=== PATIENT | female | born 1975 | race Caucasian/White ===

== ENCOUNTER → 2018-01-17 10:28 | Outpatient (CLI) | payer OTHER, SELFPAY ==
[2018-01-17 12:43] LABS: Ferritin 6 ng/mL (8-252); Iron 113 ug/dL (50-170); Magnesium 2.2 mg/dL (1.6-2.6); T4 Free Direct 0.89 ng/dL (0.76-1.46); Thyroid Stim Hormone (TSH) 1.94 uIU/mL (0.358-3.74)
[2018-01-18 10:03] LABS: Vitamin B12 691 pg/mL (211-911)
== END ==
PROVIDERS: Family Provider Family Medicine; PCP Family Medicine; Visit Provider Family Medicine
DX: D64.9 Anemia, unspecified (principal); R00.2 Palpitations; R53.83 Other fatigue
CPT/HCPCS: 36415; 82607; 82728; 83540; 83735; 84439; 84443

== ENCOUNTER → 2018-03-24 12:55 | Outpatient (CLI) | payer OTHER, SELFPAY ==
--- NOTE | 2018-03-24 12:59 | BI_ITS ---
MAMMOGRAPHY - BILATERAL SCREENING REASON FOR EXAM: Female, 42 years old. Routine annual screening examination. PERTINENT HISTORY: Non-contributory. TECHNIQUE: Digital bilateral breast magalis (3D mammographic acquisition) in the CC and MLO projections. 2-D mediolateral oblique (MLO) and craniocaudad (CC) views of both breasts were obtained. CAD: Full Field Digital Mammography with Computer Added Detection was performed. COMPARISON: None. Baseline examination. FINDINGS: Breast Composition: The breasts are heterogeneously dense, which may obscure small masses. There are no dominant masses or suspicious calcifications. Small bilateral axillary lymph nodes. No other significant abnormalities are identified. BI/SCREENING MAMM (CAD), BILAT IMPRESSION: Negative screening mammogram. Yearly followup mammogram recommended. (A) ASSESSMENT CATEGORY: BIRADS Category 2: Benign. A letter regarding these results will be sent to the patient by the facility within 30 days. Approximately 10% of breast cancers are not detected by mammography. A normal mammogram should not delay biopsy of a clinically suspicious abnormality. [id number] Electronically Signed: Karlos Jama MD at 14:57 EDT Tel [phone], Service support ,
== END ==
PROVIDERS: Family Provider Family Medicine; PCP Family Medicine; Referring Provider Obstetrics & Gynecology; Visit Provider Obstetrics & Gynecology
DX: Z12.31 Encounter for screening mammogram for malignant neoplasm of breast (principal)
CPT/HCPCS: 77063; 77067

== ENCOUNTER → 2018-12-12 15:23 | Outpatient (CLI) | payer OTHER, SELFPAY | PROVIDERS: Family Provider Family Medicine; PCP Family Medicine; Visit Provider Family Medicine | DX: J34.0 Abscess, furuncle and carbuncle of nose (principal) | CPT/HCPCS: 87077; 87081 ==

== ENCOUNTER 2019-02-12 17:29 | Emergency (ER) | payer OTHER, SELFPAY ==
[2019-02-12 17:29] VITALS: BP 99/55; PULSE 94; RESP 18; TEMP 36.9; O2SAT 99; BMI 25.7
== END 2019-02-12 20:11 | disposition left against medical advice (07) ==
LOC: ED 18:56
PROVIDERS: Emergency Provider Emergency Medicine; Family Provider Family Medicine; PCP Family Medicine
DX: R69 Illness, unspecified (principal); Z53.21 Procedure and treatment not carried out due to patient leaving prior to being seen by health care provider

== ENCOUNTER 2020-02-06 12:51 | Outpatient (RCR) | payer OTHER, SELFPAY | END 2020-02-20 23:59 | LOC: EMPH 12:51 | PROVIDERS: PCP Family Medicine; Visit Provider Family Medicine Geriatric Medicine | DX: Z11.59 Encounter for screening for other viral diseases (principal) | CPT/HCPCS: 87635; U0003 ==

== ENCOUNTER 2020-03-20 16:34 | Outpatient (RCR) | payer OTHER, SELFPAY | END 2020-03-22 23:59 | LOC: EMPH 16:34 | PROVIDERS: PCP Family Medicine; Referring Provider Family Medicine Geriatric Medicine; Visit Provider Family Medicine Geriatric Medicine | DX: Z03.818 Encounter for observation for suspected exposure to other biological agents ruled out (principal) | CPT/HCPCS: 87426 ==

== ENCOUNTER 2020-04-16 10:56 | Outpatient (RCR) | payer OTHER, SELFPAY | END 2020-04-21 23:59 | LOC: EMPH 10:56 | PROVIDERS: PCP Family Medicine; Referring Provider Family Medicine Geriatric Medicine; Visit Provider Family Medicine Geriatric Medicine | DX: Z03.818 Encounter for observation for suspected exposure to other biological agents ruled out (principal) | CPT/HCPCS: 87426 ==

== ENCOUNTER 2020-05-22 07:24 | Outpatient (RCR) | payer OTHER, SELFPAY | END 2020-05-22 23:59 | LOC: EMPH 07:24 | PROVIDERS: PCP Family Medicine; Referring Provider Family Medicine Geriatric Medicine; Visit Provider Family Medicine Geriatric Medicine | DX: Z03.818 Encounter for observation for suspected exposure to other biological agents ruled out (principal) | CPT/HCPCS: 87426 ==

== ENCOUNTER 2020-06-19 10:42 | Outpatient (RCR) | payer OTHER, SELFPAY | END 2020-06-22 23:59 | LOC: EMPH 10:42 | PROVIDERS: PCP Family Medicine; Referring Provider Family Medicine Geriatric Medicine; Visit Provider Family Medicine Geriatric Medicine | DX: Z03.818 Encounter for observation for suspected exposure to other biological agents ruled out (principal) | CPT/HCPCS: 87426 ==

== ENCOUNTER 2020-07-15 12:38 | Outpatient (RCR) | payer OTHER, SELFPAY | END 2020-07-20 23:59 | LOC: EMPH 12:38 | PROVIDERS: PCP Family Medicine; Referring Provider Family Medicine Geriatric Medicine; Visit Provider Family Medicine Geriatric Medicine | DX: Z03.818 Encounter for observation for suspected exposure to other biological agents ruled out (principal) | CPT/HCPCS: 87426 ==

== ENCOUNTER 2020-08-11 08:37 | Outpatient (RCR) | payer OTHER, SELFPAY | END 2020-08-20 23:59 | LOC: EMPH 08:37 | PROVIDERS: PCP Family Medicine; Referring Provider Family Medicine Geriatric Medicine; Visit Provider Family Medicine Geriatric Medicine | DX: Z03.818 Encounter for observation for suspected exposure to other biological agents ruled out (principal) | CPT/HCPCS: 87426 ==

== ENCOUNTER 2020-09-19 10:01 | Outpatient (RCR) | payer OTHER, SELFPAY | END 2020-09-19 23:59 | LOC: EMPH 10:01 | PROVIDERS: PCP Family Medicine; Referring Provider Family Medicine Geriatric Medicine; Visit Provider Family Medicine Geriatric Medicine | DX: Z03.818 Encounter for observation for suspected exposure to other biological agents ruled out (principal) | CPT/HCPCS: 87426 ==

== ENCOUNTER 2020-10-17 08:59 | Outpatient (RCR) | payer OTHER, SELFPAY | END 2020-10-20 23:59 | LOC: EMPH 08:59 | PROVIDERS: PCP Family Medicine; Referring Provider Family Medicine Geriatric Medicine; Visit Provider Family Medicine Geriatric Medicine | DX: Z03.818 Encounter for observation for suspected exposure to other biological agents ruled out (principal) | CPT/HCPCS: 87426 ==

== ENCOUNTER 2020-11-18 11:07 | Outpatient (RCR) | payer OTHER, SELFPAY | END 2020-11-19 23:59 | LOC: EMPH 11:07 | PROVIDERS: PCP Family Medicine; Referring Provider Family Medicine Geriatric Medicine; Visit Provider Family Medicine Geriatric Medicine | DX: Z03.818 Encounter for observation for suspected exposure to other biological agents ruled out (principal) | CPT/HCPCS: 87426 ==

== ENCOUNTER 2020-12-19 13:00 | Outpatient (RCR) | payer OTHER, SELFPAY | END 2020-12-19 16:00 | disposition home or self-care (01) | LOC: EMPH 13:00 | PROVIDERS: PCP Family Medicine; Referring Provider Family Medicine Geriatric Medicine; Visit Provider Family Medicine Geriatric Medicine | DX: Z03.818 Encounter for observation for suspected exposure to other biological agents ruled out (principal) | CPT/HCPCS: 87426 ==

== ENCOUNTER → 2020-12-19 14:23 | Outpatient (CLI) | payer OTHER, SELFPAY ==
--- NOTE | 2020-12-19 14:30 | RAD_ITS ---
STUDY: X-RAY - LUMBAR SPINE REASON FOR EXAM: Female, 45 years old. LOW BACK PAIN TECHNIQUE: 4 view(s) of the lumbar spine were obtained. COMPARISON: None FINDINGS: Normal lumbar lordosis. There is no substantial scoliosis. There is a normal alignment of the vertebrae. Normal vertebral bodies and endplates. Normal disc space heights. The soft tissue structures are unremarkable. RAD/L/S Spine Min 4 Views IMPRESSION: Normal x-ray examination of the lumbar spine. Electronically Signed: Rudi Delgadillo MD at 14:57 EDT , Service support ,
== END ==
PROVIDERS: PCP Family Medicine; Referring Provider Family Medicine; Visit Provider Family Medicine
DX: M54.5 Low back pain (principal)
CPT/HCPCS: 72110

== ENCOUNTER 2021-01-20 07:58 | Outpatient (RCR) | payer OTHER, SELFPAY | END 2021-01-20 23:59 | LOC: EMPH 07:58 | PROVIDERS: PCP Family Medicine; Referring Provider Family Medicine Geriatric Medicine; Visit Provider Family Medicine Geriatric Medicine | DX: Z03.818 Encounter for observation for suspected exposure to other biological agents ruled out (principal) | CPT/HCPCS: 87426 ==

== ENCOUNTER 2021-01-28 11:00 | Outpatient (RCR) | payer OTHER, SELFPAY ==
--- NOTE | 2020-12-29 10:05 | HP.PTEVAL ---
Patient's Visit Information DENITA MUÑOZ is a 45 year old F referred to Physical Therapy by Dr. Isauro Henry DO with a diagnosis of Back pain. Date of Evaluation: 12/29/20 Physical Therapist: Ankit Moreno DPT - Visit Plan Frequency: 2x /Week Duration: 4 Weeks Plan: start with extension progression including REIL and RACHEL for HEP. Pt. to complete x6 times daily. 2) add in neutral spine core stability to reduce risk of return. 3) maintain reduction of symptoms and progress to dynamic core stability. - Subjective Pt. is here today for her initial evaluation with diagnosis of back pain. Pt. reports having increased LBP on an off for a few years now. Initially starting ~15 years ago. Pt. is now having pain that is radiating down her L leg to her ankle. Pt. denies loss B/B and no saddle region. Pt. reports increased symptoms with: bending, lifting, sitting. Decreased symptoms: walking, standing, Tylenol. Pt. has had xrays: normal without acute injury. Pt. is having increased pain in AMs and at work. Pt. works as a nurse. She has started to increase her walking/running, and core strengthening. Pt. did have some increased pain with sit ups and with superman movements. Pt. has not tried PT recently for her symptoms. Pt. is hopeful to reduce symptoms in order to get back to all recreational and work activities without limitations. - Pain lumbar spine Pain Intensity (Out of 10): 2 Pain Intensity Range: 0, 6 - Objective POSTURE: Pt. has decent posture in stance. Pt. has slight flexed posture with slight anterior pelvic tilt. PALPATION: Pt. has increased tenderness at L2/L3 and less but still present of her lower lumbar segments. Pt. has hypomobility at L2/L3 as well. Pt. has no erector spinae pain with palpation. NEURO: Pt. has normal sensation to light and sharp touch of BLEs and normal DTR of BLEs. Pt. is able to rise on heels and toes without issues. ROM: Pt. has normal B hip ROM without increase in symptoms. LUMBAR SPINE: flexion min loss increase NW, Ext min loss decrease NB, SB nil loss NE, rotation nil loss NE. MMT: Pt. has full strength throughout BLEs. Pt. has no pain with testing. GAIT: Pt. has normal gait pattern without issues. No postural sway, no later shift noted. Normal arm swing and step length - Special Tests L/S Slump test left side: Positive L/S Slump test right side: Negative L/S Left Straight Leg Raise: Positive L/S Right Straight Leg Raise: Negative Lumbar Standing: Flexion - Mechanical Response: No effect Lumbar Standing: Flexion - Symptoms During Testing: Increases Lumbar Standing: Flexion - Symptoms After Testing: Peripheralized Lumbar Standing: Extension - Mechanical Response: No effect Lumbar Standing: Extension - Symptoms During Testing: Decreases Lumbar Standing: Extension - Symptoms After Testing: Centralized Lumbar Standing: Right Side Glides - Mechanical Response: No effect Lumbar Standing: Right Side Eldridge - Symptoms During Testing: No effect Lumbar Standing: Right Side Eldridge - Symptoms After Testing: No effect Lumbar Standing: Left Side Eldridge - Mechanical Response: No effect Lumbar Standing: Left Side Eldridge - Symptoms During Testing: No effect Lumbar Standing: Left Side Eldridge - Symptoms After Testing: No effect Lumbar Lying: Extension - Mechanical Response: No effect Lumbar Lying: Extension - Symptoms During Testing: Decreases Lumbar Lying: Extension - Symptoms After Testing: Better Lumbar Static: Slouched Sit - Mechanical Response: No effect Lumbar Static: Slouched Sit - Symptoms During Testing: Increases Lumbar Static: Slouched Sit - Symptoms After Testing: Worse Lumbar Static: Sitting Erect - Mechanical Response: No effect Lumbar Static: Sitting Erect - Symptoms During Testing: Decreases Lumbar Static: Sitting Erect - Symptoms After Testing: No better Lumbar Static:Lying Prone in Extension - Mechanical Response: No effect Lumbar Static: Lying Prone in Extension - Sx During Testing: Decreases Lumbar Static: Lying Prone in Extension - Sx After Testing: Better - Balance/Special Test Scores Oswestry Low Back Score: 14 - Goals Goal 1:: LTG: Pt. to be I with HEP. Goal Time Frame: 4-6 Weeks Goal 2:: STG: Pt. to be able to sit for 30 min without increase in symptoms. Goal Time Frame: 2 Weeks Goal 3:: STG: pt. to have decreased AM pain to 0-1/10 pain in lumbar spine and LLE. Goal Time Frame: 2 Weeks Goal 4:: LTG: Pt. to have full lumbar ROM including flexion and extension with 0/10 pain. Goal Time Frame: 4-6 Weeks Goal 5:: LTG: pt. to have increased core strength including flexion, extension and B hip to 5/5 throughout. Goal Time Frame: 4-6 Weeks Goal 6:: LTG: Pt. to complete all work and recreational activities without increase in symptoms of lumbar spine. Goal Time Frame: 4-6 Weeks - Rehabilitation Potential Physical Therapy Diagnosis: Pt. has signs and symptoms of low back pain with radicular symptoms down L side. Pt. has signs of discogenic involvement which reduced with extension progression. She has marked pain and hypomobility and L2/L3 region. Pt. would benefit from PT for extension progression, progressing to core stability to reduce risk of symptoms returning. Rehabilitation Potential: Excellent - Anticipated Interventions Patient/Client Instruction: Educate patient on: Condition, Plan of Care, Risk Factors, Benefits of Fitness Program For the Purpose of:: To improve self management, To prevent re-injury, To improve ability to perform tasks related to life management, To improve tolerance to ADL's Therapeutic Exercise to Include: Strength training, Power training, Endurance training, Postural training, Flexibilty training, via Neurocom Balance Mas, Active ROM, Dynamic Lumbar Stabilization, Nevaeh Exercises For the Purpose of:: To decrease pain, To decrease swelling/inflammation, To increase ROM, To improve nutrient delivery to tissue, To increase oxygenation perfusion, To improve muscle performance and motor function, To improve ability to perform ADL's, To increase tolerance to activity/condition/position, To improve gait and locomotor functions, To improve health of tissue, To decrease soft tissue restriction, To increase flexibility/ROM, To improve endurance Manual Therapy Techniques to Include: Mobilization, Passive ROM, Functional dry needling For the Purpose of:: To decrease pain, To decrease swelling/inflammation, To increase ROM Thank you for the opportunity to evaluate your patient. For Medicare and Medicare HMO plans, please review the plan of care and approve it. It will need to be FAXED BACK to us at [phone] for Medicare purposes. For Medicare only, by signing this I certify the plan of care. Please let me know if there are questions or concerns regarding this plan of care. Physician Signature: Date:
--- NOTE | 2021-05-05 14:30 | HP.PT.NRP ---
DENITA MUÑOZ was seen in my office for initial evaluation on 12/29/20. The following Plan of Care was established for this patient: Initial Frequency: 2x /Week Initial Duration: 4 Weeks Patient/Client Instruction: Educate patient on: Condition, Plan of Care, Risk Factors, Benefits of Fitness Program For the Purpose of:: To improve self management, To prevent re-injury, To improve ability to perform tasks related to life management, To improve tolerance to ADL's Therapeutic Exercise to Include: Strength training, Power training, Endurance training, Postural training, Flexibilty training, via Neurocom Balance Mas, Active ROM, Dynamic Lumbar Stabilization, Nevaeh Exercises For the Purpose of:: To decrease pain, To decrease swelling/inflammation, To increase ROM, To improve nutrient delivery to tissue, To increase oxygenation perfusion, To improve muscle performance and motor function, To improve ability to perform ADL's, To increase tolerance to activity/condition/position, To improve gait and locomotor functions, To improve health of tissue, To decrease soft tissue restriction, To increase flexibility/ROM, To improve endurance Manual Therapy Techniques to Include: Mobilization, Passive ROM, Functional dry needling For the Purpose of:: To decrease pain, To decrease swelling/inflammation, To increase ROM This patient was last seen in our office 01/28/21. Pertinent comments regarding their Physical therapy will appear below: Pt. was seen in PT for her LBP. Pt. was progressing well with core stability and extension progression. Pt. has not been seen in ~3 months and will be DC from PT at this point in time. At this point I will be discontinuing this patient from physical therapy. I would be happy to see this patient again in the future if found appropriate by the physician. Thank you! Ankit Moreno, DPT Balance/Gait/Functional tests - Balance/Special Test Scores Oswestry Low Back Score: 11
== END 2021-01-28 19:00 | disposition home or self-care (01) ==
LOC: PT 11:00
PROVIDERS: PCP Family Medicine; Referring Provider Family Medicine; Visit Provider Family Medicine
DX: M54.5 Low back pain (principal)
CPT/HCPCS: 97110; 97161

== ENCOUNTER → 2021-02-03 | Outpatient (CLI) | payer OTHER, SELFPAY ==
[2021-02-06 13:42] LABS: HPV APTIMA, High Risk Negative (Negative)
== END | disposition home or self-care (01) ==
LOC: LABSPEC 11:44
PROVIDERS: PCP Family Medicine; Visit Provider Obstetrics & Gynecology
DX: Z12.4 Encounter for screening for malignant neoplasm of cervix (principal)
CPT/HCPCS: 87624; 88175; G0145

== ENCOUNTER → 2021-02-11 11:23 | Outpatient (CLI) | payer OTHER, SELFPAY ==
--- NOTE | 2021-02-11 11:26 | US_ITS ---
STUDY: ULTRASOUND OF THE FEMALE PELVIS - COMPLETE REASON FOR EXAM: Female, 45 years old. ABN BLEEDING LMP: 02/04/2021. TECHNIQUE: Transabdominal and Transvaginal TECHNICAL QUALITY: Adequate. COMPARISON: None. FINDINGS: The uterus is anteverted and is in a midline position. The uterus measures 9.4 cm x 6.4 cm x 4.5 cm. There is a Nabothian cyst of the cervix. The endometrium measures 10 mm in thickness, and is hyperechoic. There is no demonstrated endometrial mass. In the lower uterine segment, there is a 7 mm x 4 mm polyp. There is heterogeneous echotexture of the myometrium although no focal fibroid is seen. I.U.D. - The patient does not have an I.U.D. The right ovary is visualized. The right ovary measures 2.5 cm x 1.9 cm x 1.6 cm. There is a 1.2 cm x 1.4 cm x 1.1 cm follicle. There is no visualized right adnexal mass or complex lesion. There is normal arterial and normal venous vascularity. The left ovary is visualized. The left ovary measures 1.9 cm x 2.6 cm x 1.3 cm. There is no left ovarian cyst or ovarian mass. There is no visualized left adnexal mass or complex lesion. There is normal arterial and normal venous vascularity. There is no fluid in the cul-de-sac. US/Transvaginal Non- IMPRESSION: Heterogeneous appearance of the myometrium although no focal fibroid is seen. Small amount of fluid and possible 7 mm x 4 mm polyp is seen in the lower uterine segment. Small follicle in the right ovary. Electronically Signed: Karlos Jama MD at 15:25 EDT , Service support ,
--- NOTE | 2021-02-11 11:26 | US_ITS ---
STUDY: ULTRASOUND OF THE FEMALE PELVIS - COMPLETE REASON FOR EXAM: Female, 45 years old. ABN BLEEDING LMP: 02/04/2021. TECHNIQUE: Transabdominal and Transvaginal TECHNICAL QUALITY: Adequate. COMPARISON: None. FINDINGS: The uterus is anteverted and is in a midline position. The uterus measures 9.4 cm x 6.4 cm x 4.5 cm. There is a Nabothian cyst of the cervix. The endometrium measures 10 mm in thickness, and is hyperechoic. There is no demonstrated endometrial mass. In the lower uterine segment, there is a 7 mm x 4 mm polyp. There is heterogeneous echotexture of the myometrium although no focal fibroid is seen. I.U.D. - The patient does not have an I.U.D. The right ovary is visualized. The right ovary measures 2.5 cm x 1.9 cm x 1.6 cm. There is a 1.2 cm x 1.4 cm x 1.1 cm follicle. There is no visualized right adnexal mass or complex lesion. There is normal arterial and normal venous vascularity. The left ovary is visualized. The left ovary measures 1.9 cm x 2.6 cm x 1.3 cm. There is no left ovarian cyst or ovarian mass. There is no visualized left adnexal mass or complex lesion. There is normal arterial and normal venous vascularity. There is no fluid in the cul-de-sac. US/Pelvic (Non ) IMPRESSION: Heterogeneous appearance of the myometrium although no focal fibroid is seen. Small amount of fluid and possible 7 mm x 4 mm polyp is seen in the lower uterine segment. Small follicle in the right ovary. Electronically Signed: Karlos Jama MD at 15:25 EDT , Service support ,
== END ==
PROVIDERS: PCP Family Medicine; Referring Provider Obstetrics & Gynecology; Visit Provider Obstetrics & Gynecology
DX: N93.9 Abnormal uterine and vaginal bleeding, unspecified (principal); N83.01 Follicular cyst of right ovary
CPT/HCPCS: 76830; 76856

== ENCOUNTER → 2021-02-17 15:32 | Outpatient (CLI) | payer OTHER, SELFPAY ==
--- NOTE | 2021-02-17 | EMB_PTH ---
PATIENT: DENITA MUÑOZ LOC: [facility] U#:[id number] AGE/SX: 49/F ROOM: RE02/17/[address]: Dr. Marko Garner MD : 1975 BED: DIS: SPEC #: [id number] RECD: 02/17/21 16:15 STATUS: FREIDA OROURKE #: [id number] YAMILEX: 02/17/21 00:[address]: Marko Garner DEPT: SURGICAL PATHOLOGY RECD BY: Myrtle Shaffer ENTERED: 02/18/21 12:12 SP TYPE: ENDOM BX/C CYRUS DR: Dr. Joe Powers MD Tissues: Endometrium, NOS Procedures: Surgery Specimen Level IV HEADER OPERATION: Endometrial biopsy PRE-OP DIAGNOSIS: N93.9 TISSUE SUBMITTED: Endometrial biopsy MICROSCOPIC DIAGNOSIS Endometrial biopsy: Proliferative endometrium. Fragments of benign endocervical mucosa, blood and mucous. See comment. KRISTIN:kathya 02/19/2021 COMMENT The specimen predominantly consists of endocervical mucosa. MICROSCOPIC DESCRIPTION Slides are reviewed. GROSS DESCRIPTION Received in fixative is one container labeled with the patient's name and designated endometrial biopsy. The specimen consists of multiple irregular fragments of dark guillen soft tissue that in aggregate measure 2 x 1.5 x <0.1 cm. The specimen is totally submitted in one cassette. / AM:kathya 02/18/21 TC:4 CPT: 12348
[2021-02-17 16:22] LABS: Hematocrit 34.6 % (37-47); Hemoglobin 11.2 g/dL (12.0-15.0); Mean Corp Hgb Conc 32.4 g/dL (32-36); Mean Corpuscular Hgb 30.9 pg (27.0-32.0); Mean Corpuscular Volume 95.6 fL (81-99); Mean Platelet Vol. 11.1 fl (6.2-12.0); Platelet Count 202 K/mm3 (150-450); RBC Distribution Width CV 12.5 % (11.6-14.6); RBC Distribution Width SD 43.7 fl (35.1-43.9); Red Blood Count 3.62 M/mm3 (4.2-5.4); White Blood Count 6.3 K/mm3 (4.4-11.0)
[2021-02-17 18:19] LABS: Estradiol 46.6 pg/mL; Follicle Stimulating Hormone 16.4 mIU/mL; Luteinizing Hormone 10.9 mIU/mL; T4 Free Direct 0.82 ng/dL (0.76-1.46); Thyroid Stim Hormone (TSH) 1.25 uIU/mL (0.358-3.74)
== END ==
PROVIDERS: PCP Family Medicine; Visit Provider Obstetrics & Gynecology
DX: N93.9 Abnormal uterine and vaginal bleeding, unspecified (principal)
CPT/HCPCS: 36415; 82670; 83001; 83002; 84439; 84443; 85027; 88305

== ENCOUNTER 2021-02-18 07:56 | Outpatient (RCR) | payer OTHER, SELFPAY ==
[2021-01-21 00:28] VITALS: BMI 25.7
== END 2021-02-19 23:59 ==
LOC: EMPH 07:56
PROVIDERS: PCP Family Medicine; Referring Provider Family Medicine Geriatric Medicine; Visit Provider Family Medicine Geriatric Medicine
DX: Z03.818 Encounter for observation for suspected exposure to other biological agents ruled out (principal)
CPT/HCPCS: 87426; 87635; U0005; U0003

== ENCOUNTER 2021-03-19 12:19 | Outpatient (RCR) | payer OTHER, SELFPAY ==
[2021-02-20 00:22] VITALS: BMI 25.7
== END 2021-03-22 23:59 ==
LOC: EMPH 12:19
PROVIDERS: PCP Family Medicine; Referring Provider Family Medicine Geriatric Medicine; Visit Provider Family Medicine Geriatric Medicine
DX: Z03.818 Encounter for observation for suspected exposure to other biological agents ruled out (principal)
CPT/HCPCS: 87426

== ENCOUNTER 2021-03-23 14:10 | Outpatient (RCR) | payer OTHER, SELFPAY ==
[2021-03-23 00:18] VITALS: BMI 25.7
[2021-03-23 12:42] LABS: Probe Check PASS
== END 2021-04-21 23:59 ==
LOC: EMPH 14:10
PROVIDERS: PCP Family Medicine; Referring Provider Family Medicine Geriatric Medicine; Visit Provider Family Medicine Geriatric Medicine
DX: U07.1 COVID-19 (principal)
CPT/HCPCS: 87635; U0005; U0003

== ENCOUNTER → 2021-04-01 10:07 | Outpatient (CLI) | payer OTHER, SELFPAY ==
--- NOTE | 2021-04-01 10:12 | RAD_ITS ---
STUDY: X-RAY CHEST REASON FOR EXAM: Female, 45 years old. COUGH,COVID TECHNIQUE: PA and lateral views of the chest. COMPARISON: None. FINDINGS: The lungs are clear and expanded. There is no demonstrated pleural abnormality. Normal size heart. Normal mediastinum and christina. Normal visualized pulmonary arteries. Normal visualized aortic arch and descending thoracic aorta. Normal visualized thoracic spine. Normal visualized ribs, clavicles, and shoulders. There is no demonstrated abnormality of the visualized soft tissue structures of the upper abdomen. RAD/Chest PA and Lateral IMPRESSION: Normal x-ray examination of the chest. Electronically Signed: Lucius Resendez MD at 16:53 EST Tel , Service support ,
== END ==
PROVIDERS: PCP Family Medicine; Referring Provider Family Medicine; Visit Provider Family Medicine
DX: U07.1 COVID-19 (principal)
CPT/HCPCS: 71046

== ENCOUNTER 2021-05-26 14:47 | Outpatient (CLI) | payer OTHER, SELFPAY | END 2021-05-26 23:59 | disposition short-term general hospital (02) | LOC: LABSPEC 14:48 | PROVIDERS: PCP Family Medicine; Visit Provider Obstetrics & Gynecology | DX: Z20.822 Contact with and (suspected) exposure to COVID-19 (principal) | CPT/HCPCS: 87635; U0003; U0005 ==

== ENCOUNTER 2021-05-28 05:59 | Day surgery (SDC) | payer OTHER, SELFPAY ==
[2021-05-28] VITALS (8 sets, daily range): BP systolic 98–114; BP diastolic 64–79; PULSE 55–72; RESP 16; TEMP 36.4–36.8; O2SAT 98–100; BMI 27.5
--- NOTE | 2021-05-28 06:27 | PCM.HP.BLA ---
History and Physical Date of Admission: 05/28/21 Surgical History and Physical Date: 05/28/2021 Name: DENITA MUÑOZ Age: 45 Date of : 1975 Denita Muñoz, a 45 year old female 2 0 1 0 3, presents for Hysteroscopy, D, endometrial ablation. Possible polypectomy on May 28, 2021 at . -- Denita is here for Hysteroscopy D&C Dulce possible symphion on 05/28/21. Consent were signed. COVID testing done. Medications and allergies up to date. States she is doing well. MEDICATIONS HISTORY: ALLERGIES: Ibuprofen, Hives, Amoxicillin, Angioedema of lips, Bactrim, Facial swelling, Bactrim and Hives and/or rash Infections - Chicken pox Illnesses - none Accidents - None Hospitalizations - Childbirth and see surgery Review of Systems: GENERAL - Denies fever, or chills SKIN - Denies skin changes EYES - Denies visual changes EARS - Denies difficulty hearing NOSE - Denies nasal congestion or bleeding MOUTH - Denies sore throat or difficulty swallowing NECK - Denies pain or swelling RESPIRATORY - Denies shortness of breath or wheezing CARDIOVASCULAR - Denies palpitations or chest pain GASTROINTESTINAL - Denies nausea, vomiting, diarrhea, constipation GENITOURINARY - Denies dysuria, frequency of urination, incontinence of urine MUSCULOSKELETAL - Denies joint or muscle pain NEUROLOGICAL - Denies localized numbness or weakness PSYCHIATRIC - Denies depression or anxiety ENDOCRINE - Denies heat or cold intolerance, weight loss or gain HEMATO-IMMUNOLOGIC - Denies excessive bleeding with cuts SOCIAL HISTORY: Alcohol Use - denies drinking Smoking - denies smoking Diet - no gluten Lifestyle - low stress lifestyle and Exercise - active Seat Belt Use - always Employer - [employer] Job Description - transitional care - RN Illicit Drug Use - None Sexual Activity - single sexual partner and single Residence - lives with Hours Worked - 36 Spouse-Sig Other Name - Maurice Marquez Spouse-Sig Other Occupation - [employer] Spouse-Sig Other Phone No - [phone] cell Children Name(s) - Reji Crooks, Roxy Blackmon Control - BTO FAMILY HISTORY: Mother: Celiac Disease. Father: Aneurysm, Pre-cancerous lesions in colon and Prostate cancer. Paternal Grandmother: Colon Cancer. MENSTRUAL HISTORY: LMP Known?- YesAmount/Duration - 5-6 DAYS, Regularity - Regular, Frequency - monthly days, LMP - 05/06/21, Age Onset Menarche - 14 PAST PREGNANCIES: Total Pregnancies - 4; Full Term Pregnancies - 2; Premature - 0; Abortions, Induced - 0; Abortions, Spontaneous - 1; Ectopics - 0; Multiple Births - 0; Living Children - 3 SURGICAL HISTORY: 1. 11/03/2006 ; Roxy Ferrara M.D. - 2. 05/23/1994 [place] Teeth Removal ; - 3. Appendectomy, 1993 ; - 4. , 1995 ; - 5. 07/09/2014 repeat /BTO ; Roxy Ferrara M.D. - PHYSICAL EXAM BP- 124/64 Sitting, Right arm, regular cuff Weight- 173.06568 lbs Height- 66 inch BMI:[id number] CONSTITUTIONAL - NAD, well nourished, and well developed SKIN - No rash, lesions, or ulcers HEENT - Normocephalic, PERRLA, EOMI NECK - No nodes, no nuchal rigidity and thyroid normal size and texture ABDOMEN - Without hepatosplenomegaly, distention, masses, rebound, or guarding; normal bowel sounds; no hernias EXTREMITIES - No edema or calf tenderness NEUROLOGICAL - Cranial nerves II-XII grossly intact PSYCHIATRIC - A and O to time, place, person, mood and affect External Genital Vagina - non-tender without lesions Urethra/Urethral Meatus - non-tender Bladder - non-tender Vagina - vaginal castano are pink and moist without loss of rugae and no evidence of atrophy Cervix - without cervical motion tenderness and has normal size and features without evident lesions Uterus - 5-6 cm in size, mobile and nontender Adnexa - clear without masses or tenderness ASSESSMENT/PLAN: 1. Encounter For Other Preprocedural Examination Patient for hysteroscopy, dilation curettage, endometrial ablation Dulce Educated patient on risk benefits alternatives all questions answered, consent signed Educated patient on postoperative recovery and pain 2. Abnormal Uterine And Vaginal Bleeding, Unspecified Patient recently with regular but heavy periods make her miss work EMB wnl. Educated pt on results. Discussed options, pt elects for ablation. Hysteroscopy, D&C, endometrial ablation. Possible polypectomy
[2021-05-28] MEDS: Lactated Ringers 1,000 ML 15 ML IV (06:31)
--- NOTE | 2021-05-28 07:30 | EMB_PTH ---
PATIENT: DENITA MUÑOZ LOC: [facility] [place] U#:[id number] AGE/SX: 45/F ROOM: RE05/28/[address]: Dr. Marko Garner MD : 1975 BED: DIS: 05/28/2021 SPEC #: [id number] RECD: 05/28/21 10:08 STATUS: FREIDA OROURKE #: [id number] YAMILEX: 05/28/21 07:[address]: Marko Garner DEPT: SURGICAL PATHOLOGY RECD BY: Nicole Segovia ENTERED: 05/28/21 13:29 SP TYPE: ENDOM BX/C CYRUS DR: Dr. Joe Powers MD Tissues: Endometrium, NOS Procedures: Surgery Specimen Level IV HEADER OPERATION: Hysteroscopy, D & C Dulce PRE-OP DIAGNOSIS: Abnormal uterine bleeding TISSUE SUBMITTED: Endometrial curettings MICROSCOPIC DIAGNOSIS Endometrium, curettings: Secretory endometrium. Rare fragments of benign endocervix. Fragment of benign myometrium. AM:kathya 05/29/2021 MICROSCOPIC DESCRIPTION Slides are reviewed. GROSS DESCRIPTION Received in fixative is one container labeled with the patient's name and designated endometrial curettings. The specimen consists of multiple irregular fragments of pink-guillen soft tissue that in aggregate measure 2.5 x 2 x 0.2 cm. The specimen is totally submitted in one cassette. / AM:kathya 05/28/21 TC:5 CPT: 64816
--- NOTE | 2021-05-28 09:13 | PCM.DC ---
Discharge Instructions Diet Discharge Diet: No restrictions Activity Discharge Activity: Return to Normal Activity, May Drive and May Shower May resume sexual activity in: 4-6 weeks Weight Bearing Status: Weight bearing as tolerated Dressing / Incision Call your doctor if your incision/area has: Continuous Slow Oozing and Foul Smelling Discharge Call your doctor if you observe: Fever of 101 or Higher, Shortness of breath and Chest pain Follow Up Care Please Follow Up With: Marko Garner MD When: 2 weeks postoperatively Test Results: Test results from this visit will be discussed in further detail at your follow-up appointment, if applicable. Discharge Plan Admission Attending Provider: Marko Garner Primary Care Provider: Joe Powers Discharge Orders/Prescriptions Prescriptions: No Action Multiple Vitamin, Womens 1 EACH tablet 1 ea PO DAILY RF: 0 Disposition Discharge Orders: Discharge Patient (Routine); Ordered 05/28/21 Ordered By: Dr. Marko Garner
--- NOTE | 2021-05-28 09:14 | PCM.OPRPT ---
Report of Operation Date of Procedure: 05/28/21 Pre-Operative Diagnosis: Abnormal uterine bleeding Post-Operative Diagnosis: Abnormal uterine bleeding Surgery/Procedure Performed:: Hysteroscopy, dilation and curettage, endometrial ablation Dulce Description of Surgical Findings:: Surgeon: Marko Garner MD Anesthesia: MAC EBL: 10 cc Urine output: 700 cc Complications: None Specimen: Endometrial curettings Findings: Hysteroscope with no pathology noted. Endometrial cavity found to be 6.5 cm in length. Post procedure hysteroscopy with no new pathology. Consent: Patient with abnormal uterine bleeding desires hysteroscopy, dilation curettage, endometrial ablation via Dulce. Patient understands the risk of the procedure include but are not limited to visceral or vascular injury, prolonged hospitalization, blood loss and need for transfusion, reoperation. Patient stated understanding and wished to proceed. All questions were answered and consent was signed. Procedure: Patient was brought back to the OR where MAC anesthesia was found to be adequate. Patient was prepared and draped in a dorsolithotomy position with yellowfin stirrups. A weighted speculum was placed in the posterior aspect of the vagina and cervical dilators were used to dilate the cervix. Hysteroscope was inserted and above findings were noted. Sharp curettage was performed in all quadrants of uterus under direct visualization. Dulce device was inserted under direct visualization with cavity length of 6.5 cm. Dulce device safety tests were passed. 120 seconds of ablation proceeded. Dulce device removed under direct visualization. Hysteroscope reinserted and above findings were noted. Good hemostasis was noted. All counts were correct x2. Patient tolerated procedure well and was brought to recovery in stable condition.
== END 2021-05-28 23:59 | disposition home or self-care (01) ==
LOC: SDC 05:59 → AC 05:59
PROVIDERS: PCP Family Medicine; Visit Provider Obstetrics & Gynecology
PROC: 0U5B8ZZ Destruction of Endometrium, Via Natural or Artificial Opening Endoscopic (ICD-10-PCS; CPT 58558; principal; 2021-05-28 07:15)
DX: N93.9 Abnormal uterine and vaginal bleeding, unspecified (principal); Z86.16 Personal history of COVID-19
CPT/HCPCS: 58563; 00952; 88305; J7120

== ENCOUNTER 2021-06-22 08:43 | Outpatient (RCR) | payer OTHER, SELFPAY ==
[2021-04-22 00:24] VITALS: BMI 25.7
== END 2021-06-22 23:59 ==
LOC: EMPH 08:43
PROVIDERS: PCP Family Medicine; Referring Provider Family Medicine Geriatric Medicine; Visit Provider Family Medicine Geriatric Medicine
DX: Z03.818 Encounter for observation for suspected exposure to other biological agents ruled out (principal)
CPT/HCPCS: 87426

== ENCOUNTER 2021-07-20 09:00 | Outpatient (RCR) | payer OTHER, SELFPAY ==
[2021-06-23 00:06] VITALS: BMI 25.7
== END 2021-07-20 23:59 ==
LOC: EMPH 09:00
PROVIDERS: PCP Family Medicine; Referring Provider Family Medicine Geriatric Medicine; Visit Provider Family Medicine Geriatric Medicine
DX: Z03.818 Encounter for observation for suspected exposure to other biological agents ruled out (principal)
CPT/HCPCS: 87426

== ENCOUNTER → 2021-09-19 | Outpatient (CLI) | payer OTHER, SELFPAY | END | disposition home or self-care (01) | LOC: LABSPEC 07:10 | PROVIDERS: PCP Family Medicine; Visit Provider Family Medicine Geriatric Medicine | DX: Z20.822 Contact with and (suspected) exposure to COVID-19 (principal) | CPT/HCPCS: 87426 ==

== ENCOUNTER → 2022-01-13 | Outpatient (CLI) | payer OTHER, SELFPAY ==
--- NOTE | 2022-01-13 11:51 | BI_ITS ---
MAMMOGRAPHY - BILATERAL SCREENING REASON FOR EXAM: Female, 46 years old. Routine annual screening examination. PERTINENT HISTORY: Non-contributory. TECHNIQUE: Digital bilateral breast reji (3D mammographic acquisition) in the CC and MLO projections. 2-D mediolateral oblique (MLO) and craniocaudad (CC) views of both breasts were obtained. CAD: Full Field Digital Mammography with Computer Added Detection was performed. COMPARISON: Comparison is made with prior study dated 03/24/2018. FINDINGS: Breast Composition: There are scattered areas of fibroglandular density. There are no dominant masses or suspicious calcifications. Stable small benign-appearing bilateral axillary lymph nodes. No other significant abnormalities are identified. There has been no significant change since the prior study. BI/SCRN MAMM (CAD)W/REJI BILAT IMPRESSION: Stable bilateral screening mammogram. Yearly follow-up mammogram recommended. (A) ASSESSMENT CATEGORY: BIRADS Category 2: Benign. A letter regarding these results will be sent to the patient by the facility within 30 days. Approximately 10% of breast cancers are not detected by mammography. A normal mammogram should not delay biopsy of a clinically suspicious abnormality. [id number] Electronically Signed: Karlos Jama MD at 12:30 EDT ,
== END | disposition home or self-care (01) ==
LOC: OPBI 11:49
PROVIDERS: PCP Family Medicine; Visit Provider Family Medicine
DX: Z12.31 Encounter for screening mammogram for malignant neoplasm of breast (principal)
CPT/HCPCS: 77063; 77067; 87811

== ENCOUNTER → 2023-02-04 | Outpatient (CLI) | payer OTHER, SELFPAY ==
--- NOTE | 2023-02-04 09:45 | RAD_ITS ---
STUDY: X-RAY - CERVICAL SPINE REASON FOR EXAM: Female, 47 years old. LEFT ARM WEAKNESS TECHNIQUE: 5 view(s) of the cervical spine were obtained. COMPARISON: None FINDINGS: Normal anterior atlantoaxial articulation. Normal odontoid process. There is straightening of the normal cervical lordosis. Mild degree of disc space narrowing and spondylosis at the C6-C7 level. Normal visualized intervertebral neuroforamina. The soft tissue structures are unremarkable. RAD/Cerv Spine 4 or 5 Views IMPRESSION: Straightening of the normal cervical lordosis. Mild degree of disc space narrowing and spondylosis at the C6-C7 level. Electronically Signed: Karlos Jama MD at 15:21 EDT ,
== END | disposition home or self-care (01) ==
LOC: RAD 09:42
PROVIDERS: PCP Family Medicine; Referring Provider Family Medicine; Visit Provider Family Medicine
DX: M54.12 Radiculopathy, cervical region (principal)
CPT/HCPCS: 72050

== ENCOUNTER → 2023-02-14 | Outpatient (CLI) | payer OTHER, SELFPAY ==
--- NOTE | 2023-02-14 14:46 | BI_ITS ---
MAMMOGRAPHY - BILATERAL SCREENING REASON FOR EXAM: Female, 47 years old. Routine annual screening examination. PERTINENT HISTORY: Non-contributory. TECHNIQUE: Digital bilateral breast reji (3D mammographic acquisition) in the CC and MLO projections. 2-D mediolateral oblique (MLO) and craniocaudad (CC) views of both breasts were obtained. CAD: Full Field Digital Mammography with Computer Added Detection was performed. COMPARISON: Comparison is made with prior study January 13, 2022 and March 24, 2018. FINDINGS: Breast Composition: There are scattered areas of fibroglandular density. There are no dominant masses or suspicious calcifications. Stable small benign-appearing bilateral axillary lymph nodes. No other significant abnormalities are identified. There has been no significant change since the prior study. BI/SCRN MAMM (CAD)W/REJI BILAT IMPRESSION: Stable bilateral screening mammogram. Yearly follow-up mammogram recommended. (A) ASSESSMENT CATEGORY: BIRADS Category 2: Benign. A letter regarding these results will be sent to the patient by the facility within 30 days. Approximately 10% of breast cancers are not detected by mammography. A normal mammogram should not delay biopsy of a clinically suspicious abnormality. [id number] Electronically Signed: Karlos Jama MD at 15:41 EDT ,
== END | disposition home or self-care (01) ==
LOC: OPBI 14:44
PROVIDERS: PCP Family Medicine; Referring Provider Family Medicine; Visit Provider Family Medicine
DX: Z12.31 Encounter for screening mammogram for malignant neoplasm of breast (principal)
CPT/HCPCS: 77063; 77067

== ENCOUNTER 2023-02-23 10:00 | Outpatient (RCR) | payer OTHER, SELFPAY ==
--- NOTE | 2023-02-01 13:14 | HP.PTEVAL_ITS ---
Patient's Visit Information Visit Information Visit Information: DENITA MUÑOZ is a 47 year old F referred to Physical Therapy by Dr. Lisbet Randolph MD with a diagnosis of L CERVICAL RADICULOPATHY. Date of Evaluation: 02/01/23 Physical Therapist: Stacey Dash, PT, Cert MDT Visit Plan Frequency: 2-3x /Week Duration: 4-6 Weeks Plan: US X 6-8 TREATMENTS. STM OF NECK AND SHLD MUSCULATURE TO RELEASE TRIGGER POINTS. CERVICAL ISOMETRICS AND STRETCHING. GENTLE MANUAL CERVICAL TRACTION AND OCCIPITAL RELEASE. MONITOR TO AVOID INCREASED UE SX'S OR HEAD SX'S. POSTURE CORRECTION/STRENGTHENING, INSTRUCTION IN APPROPRIATE BODY MECHANICS AND ACTIVITY MODIFICATIONS. SCAPULAR STRENGTHENING. HEP INSTRUCTION. 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 Present symptoms: L NECK PAIN. PAIN, NUMBNESS AND TINGLING SHOOTING DOWN L UE TO FINGERS. NO R SIDE SX'S FOR A COUPLE OF MONTHS. INTERMITTENT MILD HEADACHES MOSTLY IN THE MORNINGS. Present since: ABOUT 3-4 MONTHS AGO OR MORE. Pain Scale: Worst - 5/10 Least - 1/10 Currently: /10 Commenced as a result of: NO APPARENT REASON. Symptoms at onset: L NECK AND SHLD PAIN. Worse: BENDING OVER, HYPER-EXTENDING NECK, RANDOM Better: RESTING BY LYING DOWN OR SITTING IN RECLINER. Disturbed sleep: YES - TURNING OVER. Previous history/Previous treatment: UNREMARKABLE. NO NECK SURGERY. NO NECK INJECTIONS. NO NECK PT. NO NECK CHIROPRACTIC. This episode: NONE Dizziness: NO Tinnitis: NO Nausea: NO Shortness of Breath: NO Difficulty Swollowing: NO Gait: NORMAL Accidents: NO Unexplained weight loss: NO Imaging: NO PMH/Recent major surgery: LOW BACK INJURY ABOUT 20 YEARS AGO WITH FLARE UP AND PT LAST YEAR - RESOLVED. OTHER: PATIENT REPORTS DR. RANDOLPH MENTIONED POSSIBLE NEED FOR INJECTIONS AND PATIENT STATES SHE DOES NOT WANT INJECTIONS. Objective Objective: Sitting Posture/Standing Posture: FAIR. MILD FH AND RSHD'S. NO TORTICOLLIS. Active Correction of posture: WORSE - PULLS IN L SHLD Other Observations: INDEP GAIT AND TRANSFERS. Sensory deficit: MELITA UE LIGHT TOUCH SENSATION GROSSLY INTACT AND SYMMETRICAL ROM deficit: FULL PAINFREE R UE ROM. FULL L UE ROM AND ACTIVE AND PASSIVE ROM OF L SHLD IS FULL WITH C/O MILD L SHLD PAIN AT THE END OF THE AVAILABLE RANGE INTO L SHLD IR. Motor deficit: R HAND DOMINANT WITH A R PLATEN PRESS OPERATOR APPRENTICE STRENGTH OF 50 LBS AND L 45 LBS. MELITA UE STRENGTH IS 5/5 WITH MMT'ING EXCEPT R SHLD 4/5 AND L 4-/5. PATIENT C/O INCREASED L SHLD PAIN AFTER STRENGTH TESTING BUT DID NOT REMAIN WORSE. Reflexes: MELITA UE'S 2/3. Dural Signs: POSITIVE L UE Cervical Mvmt Loss: Flex: MIN - CENTRAL NECK PAIN WITH SHOOTING PAIN TO L SHLD. Pro: NIL Ext: MOD - SHOOTING PAIN DOWN L ARM TO ELBOW. Ret: NISA - SHOOTING PAIN DOWN L ARM TO ELBOW RSB: MIN LSB: MIN - PULLING IN L SHLD R Rot: MIN - PULLING IN L SHLD L Rot: NIL Postural strength: FAIR Palpation: PATIENT HAS TENDERNESS WITH PALPATION OF THE RIGHT UPPER TRAP REGION AND MULTIPLE TRIGGER POINTS IN L TRAPS. OTHER: GENTLE SUPINE MANUAL TRACTION AND DISTRACTION ARE TOLERATED FAIR BUT SOME TEMPORARY INCREASED PAIN WITH RELEASE OF TRACTION AND THE SAME WITH OCCIPITAL RELEASE. OVER-ALL L NECK AND SHLD SX'S ARE EASILY AGGITATED WITH NECK AND SHLD TESTING. TREATMENT: NEUROMUSCULAR REEDUCATION - RETRAINING OF MVMT AND POSTURE FOR SITTING, LYING AND STANDING ACTIVITIES. INSTRUCTION IN USE OF CERVICAL ROLL IN LYING AND LUMBAR ROLL IN SITTING. INSTRUCTION IN PROPER WORK STATION ERGONOMICS AND AVOIDANCE OF PERIPHERALIZATION OF SX'S. Balance/Special Test Scores Oswestry Neck Score: 7 Goals Goal 1:: DECREASE C/O HEAD, NECK AND L UE SX'S. Goal Time Frame: 4-6 Weeks Goal 2:: IMPROVE PERSONAL CARE, LIFTING, READING, SLEEP, AND RECREATIONAL FUNCTION. Goal Time Frame: 4-6 Weeks Goal 3:: INSTRUCT IN PROPHYLAXIS Goal Time Frame: 4-6 Weeks Anticipated Interventions Patient/Client Instruction: Educate patient on: Condition, Plan of Care and Risk Factors For the Purpose of:: To improve self management Therapeutic Exercise to Include: Strength training, Body mechanics, Postural training, Flexibilty training, Neuromotor development and Scapular Strength/Stabilization For the Purpose of:: To decrease pain, To improve muscle performance and motor function, To increase tolerance to activity/condition/position and To improve ability of physical actions for home/community/work/leisure Manual Therapy Techniques to Include: Mobilization and Soft tissue mobilization Comment: GENTLE TRACTION AND OCCIPITAL RELEASE TOLERATED. For the Purpose of:: To decrease pain and To improve muscle performance and motor function Cryotherapy (ice pack, ice massage): Yes Thermo therapy (hot pack): Yes Ultrasound (thermal/non thermal): Yes For the Purpose of:: To decrease pain, To decrease swelling/inflammation and To improve nutrient delivery to tissue Text: Thank you for the opportunity to evaluate your patient. For Medicare and Medicare HMO plans, please review the plan of care and approve it. It will need to be FAXED BACK to us at [phone] for Medicare purposes. For Medicare only, by signing this I certify the plan of care. Please let me know if there are questions or concerns regarding this plan of care. Physician Signature: Date:
--- NOTE | 2023-02-23 10:37 | HP.PTDCSUM_ITS ---
Discharge Summary D/C summary: It has been my pleasure to treat DENITA MUÑOZ referred by Dr. Lisbet Randolph MD, with the diagnosis of L CERVICAL RADICULOPATHY for a total of 10 visit(s). Discharge Date: Please see the following information for a summary of their discharge status. Subjective Subjective: PATIENT REPORTS MRI HAS BEEN APPROVED. WAITING FOR APPROVAL. PATIENT REPORTS SHE IS NO BETTER AND NO WORSE SINCE STARTING PT. STATES SHE WOKE UP WITH A HEADACHE AND NUMBNESS DOWN L ARM. ALSO WOKE UP WITH L SHLD BLADE PAIN INTO ARMPIT. TRIED PUSH MOWING FOR ABOUT 10 MINUTES YESTERDAY FELT OK WHILE DOING IT BUT SX'S INCREASED NEXT DAY. Pain NECK: Pain Intensity (Out of 10): 3 UPPER BACK: Pain Intensity (Out of 10): 1 L SHLD: Pain Intensity (Out of 10): 4 Overall Improvement % Improvement: 0 Objective Objective/Function: PATIENT WAS SEEN TODAY FOR RE-ASSESSMENT OF PROGRESS TOWARD THE SET PT GOALS AND THE NEED FOR FURTHER PHYSICAL THERAPY VS READINESS FOR DISCHARGE. PATIENT IS NOT PROGRESSING WITH PT. MRI PENDING. UPON EXAM TODAY: Motor deficit: R HAND DOMINANT WITH A R ALMOND BLANCHER OPERATOR STRENGTH OF 50 LBS AND L 45 LBS. MELITA UE STRENGTH IS 5/5 WITH MMT'ING EXCEPT R SHLD 4/5 AND L 4-/5. PATIENT C/O INCREASED L SHLD PAIN AFTER STRENGTH TESTING BUT DID NOT REMAIN WORSE. Dural Signs: POSITIVE L UE Cervical Mvmt Loss: Flex: MIN - CENTRAL NECK PAIN WITH SHOOTING PAIN TO L SHLD, UPPER ARM AND ARM PIT. Pro: NIL Ext: MOD - SHOOTING PAIN INTO L SHLD AND ARM PAIN AND PROVOKES WIERD FEELING IN WHOLE ARM TO HAND. Ret: NISA - SHOOTING PAIN INTO L SHLD AND ARM PIT AND CAUSES HEAVINESS FEELING IN L ARM. RSB: MIN LSB: MIN R Rot: MIN - PULLING IN L SHLD L Rot: NIL Postural strength: FAIR Palpation: INCREASED M. TONE AND TENDERNESS MELITA UT'S L>R BUT NO ACUTE UPPER THORACIC OR CERVICAL OR OCCIPUT TENDERNESS. Goals Goal 1:: DECREASE C/O HEAD, NECK AND L UE SX'S. Goal 2:: IMPROVE PERSONAL CARE, LIFTING, READING, SLEEP, AND RECREATIONAL FUNCTION. Goal 3:: INSTRUCT IN PROPHYLAXIS Plan Plan: D/C DUE TO LACK OF PROGRESS. PATIENT AGREEABLE. D/C Information d/c sentence: If there are questions or concerns regarding this patient's physical therapy, please feel free to call me at [phone]. Thank you for the referral of this patient. Sincerely, Stacey Dash, PT, Cert MDT Balance/Gait/Functional tests Balance/Special Test Scores Oswestry Neck Score: 11 Improvement % Improvement: 0
== END 2023-02-23 19:00 | disposition home or self-care (01) ==
LOC: PT 10:00
PROVIDERS: PCP Family Medicine; Referring Provider Family Medicine; Visit Provider Family Medicine
DX: M54.12 Radiculopathy, cervical region (principal)
CPT/HCPCS: 97012; 97035; 97110; 97112; 97140; 97162; 97164; 97530

== ENCOUNTER → 2023-03-05 | Outpatient (CLI) | payer OTHER, SELFPAY ==
--- NOTE | 2023-03-05 11:50 | MRI_ITS ---
HISTORY: Radiculopathy, neck pain radiating down left arm into hand x 3-4 months, NKI. TECHNIQUE: Multiplanar and multisequence MR images of the cervical spine were obtained without contrast. 180 images. COMPARISON: XR 02/04/2023. FINDINGS: VERTEBRAE: Vertebral body heights are maintained. Degenerative bone marrow endplate changes of C6-7. VERTEBRAL ALIGNMENT: No anterior or posterior subluxation. SPINAL CORD: Cervical cord signal and morphology within normal limits. SOFT TISSUES: No prevertebral fluid collection. Bilateral thyroid nodules measuring up to 1.2 cm. INTERVERTEBRAL DISCS: C2-3: No significant posterior disc protrusion, central canal stenosis, or foraminal narrowing. C3-4, C4-5: Minimal disc bulges without significant central canal stenosis or foraminal narrowing. C5-6: No significant posterior disc protrusion, central canal stenosis, or foraminal narrowing. C6-7: Moderate posterior disc bulge osteophyte complex with annular fissure and superimposed left paracentral disc extrusion with superior migration measuring 9 mm craniocaudal resulting in left cord, traversing nerve root, and exiting nerve root impingement . Mild central canal stenosis and moderate left foraminal narrowing. C7-T1: No significant posterior disc protrusion, central canal stenosis, or foraminal narrowing. Small bilateral perineural cysts present. MRI/Spine Cervical (Routine) IMPRESSION: Moderate left paracentral disc extrusion of C6-7 resulting in mild spinal cord impingement, left nerve root impingement, mild spinal canal stenosis, and moderate left foraminal narrowing. Multinodular thyroid with nodules measuring up to 1.2 cm. Electronically Signed: Nova Rowland MD at 15:46 EDT ,
== END | disposition home or self-care (01) ==
LOC: MRI 11:09
PROVIDERS: PCP Family Medicine; Referring Provider Family Medicine; Visit Provider Family Medicine
DX: M54.12 Radiculopathy, cervical region (principal)
CPT/HCPCS: 72141

== ENCOUNTER → 2023-04-12 | Outpatient (CLI) | payer OTHER, SELFPAY ==
--- NOTE | 2023-04-12 11:15 | BD_ITS ---
STUDY: DUAL ENERGY X-RAY ABSORPTIOMETRY / DXA REASON FOR EXAM: Female, 47 years old. Postmenopausal osteoporosis screening. TECHNIQUE: Bone Mineral Density (BMD) measurements of lumbar spine and bilateral hips were obtained. COMPARISON: None. FINDINGS: Lumbar Spine (L1-L4): g/cm2 (1.116) / T-score (0.6) / Z-score (1.3) Left Femur Total: g/cm2 (0.959) / T-score (0.1) / Z-score (0.5) Left Femoral Neck: g/cm2 (0.834) / T-score (-0.1) / Z-score (0.5) Right Femur Total: g/cm2 (1.002) / T-score (0.5) / Z-score (0.9) Right Femoral Neck: g/cm2 (0.846) / T-score (0.0) / Z-score (0.6) Patient is considered normal with a low fracture risk. Follow-up DEXA in March 2025 recommended. BD/Dexa Bone Density Study IMPRESSION: The patient is considered normal as outlined below according to World Winston Organization (WHO) criteria with a low fracture risk. Follow-up DEXA in March 2025 recommended. Reference Information: The T-score is the number of standard deviations above or below the standard which is normal for young adults at their peak bone mineral density. The World Health Organization (WHO) interprets the T-scores as follows: Above -1 Normal bone density Between -1 and -2.5 Osteopenia Equal to / or below -2.5 Osteoporosis As a practical clinical guideline, osteopenia may be graded as follows: Mild -1 through -1.5 Moderate -1.6 through -2.0 Severe -2.1 through -2.4 The Z-score is the number of standard deviations above or below age-matched controls. A Z-score of less than -1.5 would be considered abnormal. References: 1. NIH Osteoporosis and Related Bone Diseases http://www.osteo.org 2. International Society for Clinical Densitometry http://www.iscd.org 3. National Osteoporosis Foundation http://www.nof.org Electronically Signed: Timmy Odell MD at 9:40 EST ,
--- NOTE | 2023-04-12 15:09 | US_ITS ---
STUDY: THYROID ULTRASOUND REASON FOR EXAM: Female, 47 years old. GOITER TECHNIQUE: Ultrasound evaluation of the thyroid was performed with real-time and static dominguez-scale imaging. COMPARISON: None. FINDINGS: RIGHT LOBE: The right lobe of the thyroid gland measures 4.6 x 1.4 x 1.6 cm. There is a heterogeneous echotexture. Multiple hypoechoic nodules and cysts are scattered throughout the right lobe with a dominant lesion in the midpole and central aspect of the gland measuring 7 mm. LEFT LOBE: The left lobe of the thyroid gland measures 3.8 x 1.2 x 1.3 cm. There is a heterogeneous echotexture. Multiple hypoechoic nodules and cysts are scattered throughout the left lobe with a dominant lesion being a simple cyst in the midpole, measuring 1.36 x 1.1 cm with a small focus of calcium in the wall of the cyst ISTHMUS: The isthmus measures 2.2 mm. The regional lymph nodes are normal. US/Thyroid IMPRESSION: 1. Multinodular goiter Electronically Signed: Austin Estevez MD at 9:16 EST ,
== END | disposition home or self-care (01) ==
PROVIDERS: PCP Family Medicine
DX: Z78.0 Asymptomatic menopausal state (principal); E04.2 Nontoxic multinodular goiter
CPT/HCPCS: 76536; 77080

== ENCOUNTER 2023-06-29 10:30 | Outpatient (RCR) | payer OTHER, SELFPAY ==
--- NOTE | 2023-05-24 10:27 | HP.PTEVAL_ITS ---
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 Date of Evaluation: 05/24/23 Physical Therapist: FARIBA Lucas Visit Plan Frequency: 2x /Week Duration: 2 Months Plan: 2X/ week for 8 weeks for MT to the L trap and levator region, postural/scapular strength (10# limit at this point), with HEP (Have a call into Dr Avitia: ROM restrictions). HEP: orange mid rows, scapular retractions, shoulder BW rolls Subjective Subjective: Pt had a C6/C7 disc replacement on 04-27-23 due to disc herniation. She did PT and it was still bothering her. She had symptoms down her L arm. She does not feel that her L arm is weak. She is not allowed to lift over 10# and not bending or twisting and wean off the collar over the next 5 weeks. She has not lifted anything since the surgery (she is ok with lifting a gallon of milk). She did try to lift her grandson (40#) and started to notice some arm sx so she put him down right away. She took the collar off the rest of the day yes terday and she did ok. Pain C-spine: Pain Intensity (Out of 10): 0 Objective Objective: R handed: R 65 and L 50# UE AROM: R flex 12.7 and L 10 R abd 10.6 and L 9.8 R ER 12.3 and L 11.5 C-spine AROM: Rot B 76%, ext 25%, flex 50% (no pain) Bicep reflex 2+/3 palpation: very tight traps and levator on the L side Balance/Special Test Scores Oswestry Neck Score: 16 Goals Goal 1:: I HEP Goal Time Frame: 6-8 Weeks Goal 2:: Decreased tightness on the L side of her neck and shoulder Goal Time Frame: 6-8 Weeks Goal 3:: Increase UE strength on the L (at the time of the eval: UE AROM: R flex 12.7 and L 10 R abd 10.6 and L 9.8 R ER 12.3 and L 11.5) Goal Time Frame: 6-8 Weeks Goal 4:: Increase C-spine AROM to be functional with driving a car and RTW Goal Time Frame: 6-8 Weeks Goal 5:: Sit with upright posture during treatment sessions Goal Time Frame: 6-8 Weeks Rehabilitation Potential Rehabilitation Potential: Good Anticipated Interventions Patient/Client Instruction: Educate patient on: Condition and Plan of Care For the Purpose of:: To decrease pain, To increase ROM, To improve nutrient delivery to tissue, To improve muscle performance and motor function, To improve ability to perform ADL's, To increase tolerance to activity/condition/position, To improve performance and independence with ADL's, To decrease level of supervision to perform tasks, To improve ability of physical actions for home/community/work/leisure, To improve health of tissue, To decrease soft tissue restriction and To increase flexibility/ROM Therapeutic Exercise to Include: Strength training, Postural training, Flexibilty training, Passive ROM, Active ROM and Scapular Strength/Stabilization For the Purpose of:: To decrease pain, To increase ROM, To improve muscle performance and motor function, To improve ability to perform ADL's, To increase tolerance to activity/condition/position, To improve performance and independence with ADL's, To decrease level of supervision to perform tasks, To improve ability of physical actions for home/community/work/leisure, To improve health of tissue, To decrease soft tissue restriction and To increase flexibility/ROM Manual Therapy Techniques to Include: Passive ROM and Soft tissue mobilization For the Purpose of:: To decrease pain, To increase ROM, To improve health of tissue, To decrease soft tissue restriction and To increase flexibility/ROM Text: Thank you for the opportunity to evaluate your patient. For Medicare and Medicare HMO plans, please review the plan of care and approve it. It will need to be FAXED BACK to us at [phone] for Medicare purposes. For Medicare only, by signing this I certify the plan of care. Please let me know if there are questions or concerns regarding this plan of care. Physician Signature: Date:
--- NOTE | 2023-06-21 11:04 | HP.PTREVAL ---
Re-Evaluation Intro: INDERJIT BURNETTE, It has been my pleasure to treat DENITA MUÑOZ over the last 8 visits for Anterior cervical artificial disc replacement 04/27/23. Please see the progress note below for an update on the physical therapy plan of care! Subjective Subjective: Pt reports that if she has pain when she turns to end range... it is like a sharp muscle like pain. She goes back to the Dr 07-12-23 and not back to work until after that. Pt has to go back to work Objective Objective/Function: UE AROM: R flex 14.9 and L 15.5 R abd 15.3 and L 14.1 R ER 12.7 and L 12 Plan Plan Plan: Schedule 2-4 additional visits to learn indep gym routine to build strength slowly as she is afraid to start lifting again. 2X/ week for 8 weeks for MT to the L trap and levator region, postural/scapular strength (10# limit at this point), gentle AROM with no pain and to tolerance (from [facility] at Dr Garner office) with HEP HEP: orange mid rows, scapular retractions, shoulder BW rolls Balance/Gait/Functional tests Balance/Special Test Scores Oswestry Neck Score: 7 Goals Goals Goal 1:: I HEP Goal Time Frame: 6-8 Weeks Goal Progress: Progressing Goal 2:: Decreased tightness on the L side of her neck and shoulder Goal Time Frame: 6-8 Weeks Goal Progress: Goal Met Goal 3:: Increase UE strength on the L (at the time of the eval: UE AROM: R flex 12.7 and L 10 R abd 10.6 and L 9.8 R ER 12.3 and L 11.5) Goal Time Frame: 6-8 Weeks Goal 4:: Increase C-spine AROM to be functional with driving a car and RTW Goal Time Frame: 6-8 Weeks Goal Progress: Progressing Goal 5:: Sit with upright posture during treatment sessions Goal Time Frame: 6-8 Weeks Goal Progress: Goal Met Anticipated Interventions Anticipated Interventions Patient/Client Instruction: Educate patient on: Condition and Plan of Care For the Purpose of:: To decrease pain, To increase ROM, To improve nutrient delivery to tissue, To improve muscle performance and motor function, To improve ability to perform ADL's, To increase tolerance to activity/condition/position, To improve performance and independence with ADL's, To decrease level of supervision to perform tasks, To improve ability of physical actions for home/community/work/leisure, To improve health of tissue, To decrease soft tissue restriction and To increase flexibility/ROM Therapeutic Exercise to Include: Strength training, Postural training, Flexibilty training, Passive ROM, Active ROM and Scapular Strength/Stabilization For the Purpose of:: To decrease pain, To increase ROM, To improve muscle performance and motor function, To improve ability to perform ADL's, To increase tolerance to activity/condition/position, To improve performance and independence with ADL's, To decrease level of supervision to perform tasks, To improve ability of physical actions for home/community/work/leisure, To improve health of tissue, To decrease soft tissue restriction and To increase flexibility/ROM Manual Therapy Techniques to Include: Passive ROM and Soft tissue mobilization For the Purpose of:: To decrease pain, To increase ROM, To improve health of tissue, To decrease soft tissue restriction and To increase flexibility/ROM Re-Evaluation Ending Re-evaluation ending: Please do not hesitate to contact me at [phone] by phone or if you have questions or concerns regarding this new plan of care! Sincerely, Yvette Catalan, MPT
--- NOTE | 2023-09-21 12:29 | HP.PTDCSUM ---
Discharge Summary D/C summary: It has been my pleasure to treat DENITA MUÑOZ referred by INDERJIT BURNETTE, with the diagnosis of Anterior cervical artificial disc replacement 04/27/23 for a total of 10 visit(s). Discharge Date: 09/21/23 Please see the following information for a summary of their discharge status. Subjective Subjective: Overall, 95% improved. Still most limited with left rotation of neck. Pt came in and exercises on gym equipment on Tuesday evening. Shoulder blades are a little sore today (2/10) Pain C-spine: Pain Intensity (Out of 10): 2 Overall Improvement % Improvement: 95 Objective Objective/Function: Focused on cervical, thoracic range of motion, stretching due to elevated soreness. Issued gym log of machine based exercise program. Goals Goal 1:: I HEP Goal Progress: Progressing Goal 2:: Decreased tightness on the L side of her neck and shoulder Goal Progress: Goal Met Goal 3:: Increase UE strength on the L (at the time of the eval: UE AROM: R flex 12.7 and L 10 R abd 10.6 and L 9.8 R ER 12.3 and L 11.5) Goal 4:: Increase C-spine AROM to be functional with driving a car and RTW Goal Progress: Progressing Goal 5:: Sit with upright posture during treatment sessions Goal Progress: Goal Met Plan Plan: Schedule 2-4 additional visits to learn indep gym routine to build strength slowly as she is afraid to start lifting again. 2X/ week for 8 weeks for MT to the L trap and levator region, postural/scapular strength (10# limit at this point), gentle AROM with no pain and to tolerance (from [facility] at Dr Garner office) with HEP HEP: orange mid rows, scapular retractions, shoulder BW rolls D/C Information Discharge Comments: DC PT d/c sentence: If there are questions or concerns regarding this patient's physical therapy, please feel free to call me at [phone]. Thank you for the referral of this patient. Sincerely, Yvette Catalan, MPT Balance/Gait/Functional tests Balance/Special Test Scores Oswestry Neck Score: 7 Improvement % Improvement: 95
== END 2023-06-29 19:00 | disposition home or self-care (01) ==
LOC: PT 10:30
PROVIDERS: PCP Family Medicine
DX: M50.223 Other cervical disc displacement at C6-C7 level (principal)
CPT/HCPCS: 97110; 97140; 97161; 97530

== ENCOUNTER → 2023-09-07 | Outpatient (CLI) | payer OTHER, SELFPAY ==
[2023-09-07 11:24] LABS: Free T3 2.3 pg/mL (2.18-3.98); T4 Free Direct 0.89 ng/dL (0.76-1.46); Thyroid Stim Hormone (TSH) 1.71 uIU/mL (0.358-3.74)
== END | disposition home or self-care (01) ==
PROVIDERS: PCP Family Medicine; Referring Provider Family Medicine; Visit Provider Family Medicine
DX: R53.83 Other fatigue (principal)
CPT/HCPCS: 36415; 84439; 84443; 84481

== ENCOUNTER → 2023-10-28 | Outpatient (CLI) | payer OTHER, SELFPAY | END | disposition home or self-care (01) | LOC: EMPH 11:53 | PROVIDERS: PCP Family Medicine; Visit Provider Family Medicine Geriatric Medicine | DX: Z03.818 Encounter for observation for suspected exposure to other biological agents ruled out (principal) | CPT/HCPCS: 87811 ==

== ENCOUNTER → 2025-02-21 | Outpatient (CLI) | payer OTHER, SELFPAY ==
[2025-02-21 15:51] LABS: AST(SGOT) 23 U/L (<=31); Alanine Aminotransfer ALT/SGPT 26 U/L (<=34); Albumin, Serum 4.2 g/dL (3.5-5.0); Alkaline Phosphatase 89 U/L (35-104); Bilirubin, Direct 0.10 mg/dL (0.00-0.30); Globulin 2.5 g/dL (2.2-4.2)
== END | disposition home or self-care (01) ==
LOC: LAB 14:33
PROVIDERS: PCP Family Medicine; Referring Provider Family Medicine; Visit Provider Family Medicine
DX: R74.8 Abnormal levels of other serum enzymes (principal)
CPT/HCPCS: 36415; 80076

== ENCOUNTER → 2025-03-04 | Outpatient (CLI) | payer OTHER, SELFPAY ==
--- NOTE | 2025-03-04 10:47 | BI_ITS ---
EXAM: SCRN MAMM (CAD)W/REJI BILAT DATE: 03/04/2025 CLINICAL HISTORY: F, Age 49 y/o , SCREENING TECHNIQUE: Procedure Code: [id number] Modality: MG Procedure: SCRN MAMM (CAD)W/REJI BILAT COMPARISON: Prior exam(s) dated 02/14/2023 and 01/13/2022. FINDINGS: TISSUE DENSITY: The breasts are almost entirely fatty. Bilateral Breast Mammographic Findings: No significant masses, calcifications or other abnormalities are identified. Benign round microcalcifications are seen in both breasts. A stable benign-appearing intramammary lymph node in the superior, far posterior aspect of the right breast is noted. BI/SCRN MAMM (CAD)W/REJI BILAT IMPRESSION: Benign screening mammogram OVERALL FINAL ASSESSMENT BI-RADS 2: BENIGN RECOMMENDATION: Routine annual follow-up in 1 Year Additional Recommendation none A letter with findings and recommendations will be mailed to the patient. Reading Location: [id number]
== END | disposition home or self-care (01) ==
PROVIDERS: PCP Family Medicine; Referring Provider Family Medicine; Visit Provider Family Medicine
DX: Z12.31 Encounter for screening mammogram for malignant neoplasm of breast (principal)
CPT/HCPCS: 77063; 77067